=== PATIENT | male | born 1995 | race Hispanic/Latino ===

== ENCOUNTER 2025-07-20 06:54 | Inpatient (IN) | payer OTHER ==
[2025-07-20] MEDS ORDERED: MORPHINE 4 MG/ML SYR ONE (07:13)
[2025-07-20] MEDS ORDERED: ONDANSETRON 4 MG/2 ML VIAL ONE (07:13)
[2025-07-20] MEDS ORDERED: NA CHLORIDE 0.9% 1,000 ML ONE ×2 (07:13→08:33)
[2025-07-20] MEDS ORDERED: FAMOTIDINE 20 MG/2 ML VIAL IV ONE (07:13)
--- OUTSIDE RECORDS SUMMARY | 2025-07-20 07:19 | XMS REPORT | Continuity of Care Document ---
Author Name Unknown Address [address] [facility] [address] [place] [address] [facility] [place] Address [address] [facility] [place] [address] Care Team Providers Care Informatica Architect Name Role Phone Kat Mendoza Primary Care Physician [phone] GEORGES VILLANUEVA Attending Clinician Nicol Parker Attending Clinician Unavailabl e Doctor Unassigned, [place] Attending Clinician U ZACKARY Stevenson Attending Clinician Unavailable ZACKARY NARAYAN Attending Clinician Unavailable ELOISA LEDESMA Attending Clinician Unavailable Eloisa Keen Attending Clinician [phone] UNKNOWN, ATTENDING Attending Clinician Unavailab le Lab, Ang - Db Attending Clinician Unavailable Unknown, Attending Attending Clinician Unavailab le [facility] Attending Clinician Unavailable RUBY CASSIDY Attending Clinician Unavailable Leola Stephenson Attending Clinician [phone] LEOLA MILLER Attending Clinician Unavailable Maritza Baca DO Attending Clinician [phone] HAIR VALLE Attending Clinician Unavailable ANTONIO ENCINAS K.HProsper Attending Clinician Unavailricky Encinas MD, Antonio K.H. Attending Clinician + [phone] Kat Mendoza Attending Clinician [phone] KAT HUITRON Attending Clinician Unavailable GEORGES VILLANUEVA Admitting Clinician Jsoe rowe Payers Payer Name Policy Type Policy Number Effective Date Expirati on Date Source [facility] [place] - OUT OF STATE [id number] 2020 00:00:00 Problems Condition Name Condition Details Condition Category Status Onset Date Resolution Date Last Treatment Date Treating Clinician Comments Source Melena Melena Disease Active 02-27 00:00: 00 [facility] Elevated liver function tests Elevated liver function tests Disease Active 01-29 00:00: 00 [facility] BMI 45.0-49.9, adult BMI 45.0-49.9, adult Disease Active 3 00:00: 00 [facility] Encounter to establish care Encounter to establish care Disease Active 01-22 00:00: 00 [facility] Epigastric pain Epigastric pain Disease Active 01-22 00:00: 00 [facility] Nausea Nausea Disease Active 01-22 00:00: 00 [facility] Hematuria, unspecifie d type Hematuria, unspecifie d type Disease Active 01-22 00:00: 00 [facility] Hematemesi s with nausea Hematemesi s with nausea Disease Active 01-22 00:00: 00 [facility] Encounter to establish care Encounter to establish care Disease Active 01-22 00:00: 00 [facility] No known active problems No known active problems Disease [facility] Allergies, Adverse Reactions, Alerts Allergy Name Allergy Type Status Severity Reaction(s) Onset Date Inactive Date Treating Clinician Comments Source House Dust Propensi ty to adverse reaction s Active Other - See comments 08-24 00:00: 00 sneezing [facility] HOUSE DUST DRUG INGREDI Active Other-Cmnt 08-24 00:00: 00 [facility] NO KNOWN ALLERGIE S Drug Class Active [facility] Social History Social Habit Start Date Stop Date Quantity Comments Source [facility] to SARS-CoV-2 (event) Not sure [facility] Alcohol intake 2024-02-28 00:00:00 2024-02-28 00:00:00 Ex-drinker (finding) [facility] Alcoholic beverage intake 2024-02-28 00:00:00 2024-02-28 00:00:00 Ex-drinker (finding) [facility] History of Social function 2024-01-19 00:00:00 2024-01-19 00:00:00 [facility] Tobacco use and exposure 2021-02-25 00:00:00 2021-02-25 00:00:00 Smokeless tobacco non-user [facility] Sex assigned at 1995 00:00:00 1995 00:00:00 [facility] Smoking Status Start Date Stop Date Source Never smoked tobacco [facility] Medications Ordered Medication Name Filled Medication Name Start Date Stop Date Current Medication? Ordering Clinician Indication Dosage Frequency Signature (SIG) Comments Components Source omeprazole 20 mg capsule 02-27 00:00: 00 Yes [id number] 20mg Take 1 capsule by mouth in the morning and 1 capsule in the evening. [facility] pantoprazol e 40 mg EC tablet 01-22 00:00: 00 02-21 04:59 :00 No [id number] 40mg Take 1 tablet by mouth in the morning for 30 days. [facility] ondansetron 4 mg disintegrat ing tablet 01-20 00:00: 00 Yes [id number] 4mg Take 1 tablet by mouth every 8 (eight) hours as needed for Nausea and Vomiting (N/V). [facility] diazePAM (VALIUM) tablet 5 mg 08-24 13:00: 00 08-24 12:07 :00 No 5mg 5 mg, Oral, ONCE, 1 dose, On Mon08/24/21 at 0800, AHMET [facility] FENTanyl PF (SUBLIMAZE (PF)) injection 50 mcg 08-24 13:00: 00 08-24 12:00 :00 No 50ug 50 mcg, Intramuscu lar, ONCE, 1 dose, On Mon08/24/21 at 0800, Routine [facility] dexamethaso ne (DECADRON PHOSPHATE) injection 10 mg 08-24 13:00: 00 08-24 12:07 :00 No 10mg 10 mg, Oral, ONCE, 1 dose, On Mon08/24/21 at 0800, STAT [facility] cyclobenzap rine 10 mg tablet 08-24 00:00: 00 Yes [id number] 10mg Take 1 tablet by mouth 3 (three) times daily as needed for Muscle Spasms. [facility] No known medications No Un thomas ity [facility] No known medications No Un thomas ity [facility] No known medications [facility] No known [facility] No [facility] No known medications No [facility] No known medications No [facility] No known [facility] No [facility] No known medications No [facility] No known medications No [facility] No known medications No Un thomas [facility] Immunizations Ordered Immunization Name Filled Immunization Name Date Status Comments Source SARS-COV-2 COVID-19 MODERNA VACCINE 2021-03-26 00:00:00 Completed [facility] SARS-COV-2 COVID-19 MODERNA 12+ YRS VACCINE 2021-03-26 00:00:00 Completed [facility] SARS-COV-2 COVID-19 MODERNA VACCINE 2021-03-26 00:00:00 Completed [facility] SARS-COV-2 COVID-19 MODERNA VACCINE 2021-02-26 00:00:00 Completed [facility] SARS-COV-2 COVID-19 MODERNA 12+ YRS VACCINE 2021-02-26 00:00:00 Completed [facility] SARS-COV-2 COVID-19 MODERNA VACCINE 2021-02-26 00:00:00 Completed [facility] SARS-COV-2 COVID-19 MODERNA VACCINE 2021-02-26 00:00:00 Completed [facility] SARS-COV-2 COVID-19 MODERNA VACCINE 2021-02-26 00:00:00 Completed [facility] SARS-COV-2 COVID-19 MODERNA 12+ YRS VACCINE Unknown Completed [facility] SARS-COV-2 COVID-19 MODERNA 12+ YRS VACCINE Unknown Completed [facility] SARS-COV-2 COVID-19 MODERNA 12+ YRS VACCINE Unknown Completed [facility] SARS-COV-2 COVID-19 MODERNA 12+ YRS VACCINE Unknown Completed [facility] SARS-COV-2 COVID-19 MODERNA 12+ YRS VACCINE Unknown Completed [facility] SARS-COV-2 COVID-19 MODERNA 12+ YRS VACCINE Unknown Completed [facility] SARS-COV-2 COVID-19 MODERNA 12+ YRS VACCINE Unknown Completed [facility] SARS-COV-2 COVID-19 MODERNA 12+ YRS VACCINE Unknown Completed [facility] SARS-COV-2 COVID-19 MODERNA 12+ YRS VACCINE Unknown Completed [facility] SARS-COV-2 COVID-19 MODERNA 12+ YRS VACCINE Unknown Completed [facility] SARS-COV-2 COVID-19 MODERNA 12+ YRS VACCINE Unknown Completed [facility] SARS-COV-2 COVID-19 MODERNA 12+ YRS VACCINE Unknown Completed [facility] SARS-COV-2 COVID-19 MODERNA 12+ YRS VACCINE Unknown Completed [facility] SARS-COV-2 COVID-19 MODERNA 12+ YRS VACCINE Unknown Completed [facility] SARS-COV-2 COVID-19 MODERNA 12+ YRS VACCINE Unknown Completed [facility] SARS-COV-2 COVID-19 MODERNA 12+ YRS VACCINE Unknown Completed [facility] SARS-COV-2 COVID-19 MODERNA 12+ YRS VACCINE Unknown Completed [facility] SARS-COV-2 COVID-19 MODERNA 12+ YRS VACCINE Unknown Completed [facility] SARS-COV-2 COVID-19 MODERNA 12+ YRS VACCINE Unknown Completed [facility] SARS-COV-2 COVID-19 MODERNA 12+ YRS VACCINE Unknown Completed [facility] SARS-COV-2 COVID-19 MODERNA 12+ YRS VACCINE Unknown Completed [facility] SARS-COV-2 COVID-19 MODERNA 12+ YRS VACCINE Unknown Completed [facility] Vital Signs Vital Name Observation Time Observation Value Comments S ource Systolic blood pressure 2024-02-28 16:04:00 131 mm[Hg] [facility] Diastolic blood pressure 2024-02-28 16:04:00 84 mm[Hg] [facility] Heart rate 2024-02-28 16:04:00 89 /min Un[facility] Body temperature 2024-02-28 16:02:00 35.11 Evangelina [facility] Respiratory rate 2024-02-28 16:02:00 16 /min [facility] Body height 2024-02-28 16:02:00 182.9 cm [facility] Body weight 2024-02-28 16:02:00 159.621 kg [facility] BMI 2024-02-28 16:02:00 47.73 kg/m2 [facility] Oxygen saturation in Arterial blood by Pulse oximetry 2024-02-28 16:02:00 98 /min [facility] Systolic blood pressure 2024-01-30 20:21:00 124 mm[Hg] [facility] Diastolic blood pressure 2024-01-30 20:21:00 79 mm[Hg] [facility] Heart rate 2024-01-30 20:21:00 86 /min [facility] Body temperature 2024-01-30 20:21:00 36.67 Evangelina [facility] Respiratory rate 2024-01-30 20:21:00 18 /min [facility] Body height 2024-01-30 20:21:00 182.9 cm [facility] Body weight 2024-01-30 20:21:00 158.169 kg [facility] BMI 2024-01-30 20:21:00 47.29 kg/m2 [facility] Oxygen saturation in Arterial blood by Pulse oximetry 2024-01-30 20:21:00 98 /min [facility] Systolic blood pressure 2024-01-22 19:05:00 129 mm[Hg] [facility] Diastolic blood pressure 2024-01-22 19:05:00 83 mm[Hg] [facility] Heart rate 2024-01-22 19:05:00 81 /min Un[facility] Body temperature 2024-01-22 19:05:00 36.78 Evangelina [facility] Respiratory rate 2024-01-22 19:05:00 18 /min [facility] Body height 2024-01-22 19:05:00 182.9 cm [facility] Body weight 2024-01-22 19:05:00 160.483 kg [facility] BMI 2024-01-22 19:05:00 47.98 kg/m2 [facility] Oxygen saturation in Arterial blood by Pulse oximetry 2024-01-22 19:05:00 97 /min [facility] Systolic blood pressure 2024-01-19 21:34:00 138 mm[Hg] [facility] Diastolic blood pressure 2024-01-19 21:34:00 83 mm[Hg] [facility] Heart rate 2024-01-19 21:34:00 88 /min Un[facility] Body temperature 2024-01-19 21:34:00 36.11 Evangelina [facility] Respiratory rate 2024-01-19 21:34:00 18 /min [facility] Body height 2024-01-19 21:34:00 182.9 cm [facility] Body weight 2024-01-19 21:34:00 160.664 kg [facility] BMI 2024-01-19 21:34:00 48.04 kg/m2 [facility] Oxygen saturation in Arterial blood by Pulse oximetry 2024-01-19 21:34:00 96 /min [facility] Systolic blood pressure 2021-08-24 11:36:00 137 mm[Hg] [facility] Diastolic blood pressure 2021-08-24 11:36:00 74 mm[Hg] [facility] Heart rate 2021-08-24 11:36:00 58 /min Unive [facility] Body temperature 2021-08-24 11:36:00 36.94 Evangelina [facility] Respiratory rate 2021-08-24 11:36:00 19 /min [facility] Oxygen saturation in Arterial blood by Pulse oximetry 2021-08-24 11:36:00 99 /min [facility] Systolic blood pressure 2021-02-26 18:17:00 125 mm[Hg] [facility] Diastolic blood pressure 2021-02-26 18:17:00 85 mm[Hg] [facility] Heart rate 2021-02-26 18:17:00 73 /min Un[facility] Respiratory rate 2021-02-26 18:17:00 19 /min [facility] Body height 2021-02-26 18:17:00 185.4 cm [facility] Body weight 2021-02-26 18:17:00 138.529 kg [facility] BMI 2021-02-26 18:17:00 40.29 kg/m2 [facility] Oxygen saturation in Arterial blood by Pulse oximetry 2021-02-26 18:17:00 98 /min [facility] Systolic blood pressure 2021-02-25 14:39:00 134 mm[Hg] [facility] Diastolic blood pressure 2021-02-25 14:39:00 85 mm[Hg] [facility] Heart rate 2021-02-25 14:39:00 83 /min [facility] Body temperature 2021-02-25 14:39:00 36.94 Evangelina [facility] Body height 2021-02-25 14:39:00 185.4 cm [facility] Body weight 2021-02-25 14:39:00 141.613 kg [facility] BMI 2021-02-25 14:39:00 41.19 kg/m2 [facility] Oxygen saturation in Arterial blood by Pulse oximetry 2021-02-25 14:39:00 99 /min [facility] Procedures Procedure Date / Time Performed Performing Clinician Source EXTERNAL PROVIDER RECORDS 2024-02-07 05:01:00 Do ctor Unassigned, [place] [facility] XR CHEST 2 VW 2024-01-19 22:09:18 Leola Miller [facility] POCT URINALYSIS 2024-01-19 21:57:00 Leola [facility] NO SHOW OR MISSED APPOINTMENT POLICY ACKNOWLEDGEMENT 2024-01-19 21:23:23 Doctor Unassigned, [place] [facility] EXTERNAL PROVIDER - ADC CARDIOLOGY 2021-03-29 05:01:00 Doctor Unassigned, [place] [facility] EKG-12 LEAD 2021-02-26 18:23:39 Antonio Encinas [facility] ASSIGNMENT OF BENEFITS 2021-02-26 17:53:08 Docto r Unassigned, [place] [facility] CONSENT/REFUSAL FOR DIAGNOSIS AND TREATMENT 2021-02-26 17:52:55 Doctor Unassigned, [place] [facility] Encounters Start Date/Time End Date/Time Encounter Type Admission Type Attending [facility] Facility Care Department Encounter ID Source 2024-05-07 16:30:53 Outpatient GEORGES MARTINEZ [facility] [id number] [facility] 2024-03-06 16:32:40 Outpatient GEORGES MARTINEZ [facility] [id number] [facility] 2021-09-28 01:49:34 Emergency [facility] [id number] [facility] 2024-03-01 00:00:00 2025-01-11 02:26:49 Orders Only Nicol Hager Donesha N [facility] 1..840.114 350.1.13.10 4.2.7.2.686 [id number] [facility] 2024-05-20 00:00:00 2024-06-22 18:23:42 Patient Secure Msg Doctor Unassigned, [place] [facility] 1..840.114 350.1.13.10 4.2.7.2.686 [id number] [facility] 2024-05-07 15:30:00 2024-05-07 15:30:00 Outpatient ELOISA GONCALVES [facility] [id number] [facility] 2024-03-12 00:00:00 2024 18:06:11 Patient Secure Msg Doctor Unassigned, [place] [facility] 1.20.114 350.1.13.10 4.2.7.2.686 [id number] [facility] 2024-03-13 00:00:00 2024 18:05:27 Patient Secure Msg Doctor Unassigned, [place] [facility] 1.20.114 350.1.13.10 4.2.7.2.686 [id number] [facility] 2024-03-06 00:00:00 2024-04-06 18:03:45 Patient Secure Msg Doctor Unassigned, [place] [facility] 1.20.114 350.1.13.10 4.2.7.2.686 [id number] [facility] 2024-03-06 00:00:00 2024-03-06 00:00:00 Telephone Eloisa Ledesma [facility] 1.84.114 350.1.13.10 4.2.7.2.686 [id number] [facility] 2024-03-03 00:00:00 2024-03-03 00:00:00 Telephone Eloisa Ledesma [facility] 1.84.114 350.1.13.10 4.2.7.2.686 [id number] [facility] 2024-03-01 12:30:00 2024-03-01 12:59:25 Outpatient R UNKNOWN, ATTENDING [facility] [id number] [facility] 2024-03-01 12:30:00 2024-03-01 12:59:25 Test Fixture Designer Visit Lab, Ezekiel - Db Unknown, Attending [facility] 1.2840.114 350.1.13.10 4.2.7.2.686 [id number] [facility] 2024-02-29 00:00:00 2024-02-29 00:00:00 Telephone [facility] 1.2840.114 350.1.13.10 4.2.7.2.686 [id number] [facility] 2024-02-29 00:00:00 2024-02-29 00:00:00 Telephone [facility] 1.0.114 350.1.13.10 4.2.7.2.686 [id number] [facility] 2024-02-28 12:00:00 2024-02-28 12:15:00 Test Fixture Designer Visit [facility] 1..114 350.1.13.10 4.2.7.2.686 [id number] [facility] 2024-02-28 11:00:00 2024-02-28 11:30:[address] [facility] 1.2840.114 350.1.13.10 4.2.7.2.686 [id number] [facility] 2024-02-28 11:00:00 2024-02-28 11:00:00 Outpatient R ZACKARY NARAYAN LAUREN [facility] [id number] [facility] 2024-02-28 00:00:00 2024-02-28 00:00:00 Patient Secure Msg Doctor Unassigned, [place] [facility] 1.84.114 350.1.13.10 4.2.7.2.686 [id number] [facility] 2024-02-07 00:00:2024-02-07 00:00:00 Orders Only Doctor Unassigned, [place] [facility] 1.2840.114 350.1.13.10 4.2.7.2.686 [id number] [facility] 2024-01-30 14:30:00 2024-01-30 15:02:38 Outpatient R ELOISA LEDESMA [facility] [id number] [facility] 2024-01-30 14:30:00 2024-01-30 15:02:38 Office Visit Baltazar [facility] 1..840.114 350.1.13.10 4.2.7.2.686 [id number] [facility] 2024-01-26 00:00:00 2024-01-26 00:00:00 Telephone Brigitte[facility]onserrat [facility] 1.2.840.114 350.1.13.10 4.2.7.2.686 [id number] [facility] 2024-01-22 13:00:00 2024-01-22 13:30:07 Outpatient R ELOISA LEDESMA [facility] [id number] [facility] 2024-01-22 13:00:00 2024-01-22 13:30:07 Office Visit [facility] 1.2.840.114 350.1.13.10 4.2.7.2.686 [id number] [facility] 2024-01-22 00:00:00 2024-01-22 00:00:00 Letter (Out) [facility] 1.2.840.114 350.1.13.10 4.2.7.2.686 [id number] [facility] 2024-01-20 00:00:00 2024-01-20 00:00:00 Telephone Leola Miller [facility] 1.84.114 350.1.13.10 4.2.7.2.686 [id number] [facility] 2024-01-19 15:48:15 2024-01-19 23:59:00 Hospital Encounter Leola Miller [facility] 1.2.114 350.1.13.10 4.2.7.2.686 [id number] [facility] 2024-01-19 16:15:00 2024-01-19 16:30:00 Test Fixture Designer Visit Lab, [facility]iel [facility] 1.84.114 350.1.13.10 4.2.7.2.686 [id number] [facility] 2024-01-19 15:40:00 2024-01-19 15:57:29 Outpatient R SUSANNegro LEOLA [facility] [id number] [facility] 2024-01-19 15:40:00 2024-01-19 15:57:29 Urgent Care Leola Miller Unknown, Attending [facility] 1.84.114 350.1.13.10 4.2.7.2.686 [id number] [facility] 2024-01-19 00:00:00 2024-01-19 00:00:00 Orders Only Doctor Unassigned, [place] [facility] 1.84.114 350.1.13.10 4.2.7.2.686 [id number] [facility] 2023-07-12 09:30:00 2023-07-12 09:30:00 Outpatient R ELOISA LEDESMA [facility] [id number] [facility] 2021-08-24 06:46:00 2021-08-24 07:25:00 Emergency Maritza Baca [facility] 1.2.840.114 350.1.13.10 4.2.7.2.686 [id number] [facility] 2021-03-29 00:00:00 2021-03-29 00:00:00 Orders Only Doctor Unassigned, [place] [facility] 1.2.840.114 350.1.13.10 4.2.7.2.686 [id number] [facility] 2021-03-26 14:00:00 2021-03-26 14:00:00 Outpatient HAIR LUTHER [facility] [id number] [facility] 2021-03-02 13:00:00 2021-03-02 13:00:00 Outpatient ANTONIO LEVIN [facility] [id number] [facility] 2021-03-01 00:00:00 2021-03-01 00:00:00 Telephone Antonio Encinas [facility] 1.2.840.114 350.1.13.10 4.2.7.2.686 [id number] [facility] 2021-02-26 12:54:53 2021-02-26 13:59:10 Office Visit Antonio Encinas [facility] 1.2.840.114 350.1.13.10 4.2.7.2.686 [id number] [facility] 2021-02-26 13:40:00 2021-02-26 13:40:00 Outpatient HAIR LUTHER [facility] [id number] [facility] 2021-02-26 13:00:00 2021-02-26 13:00:00 Outpatient ANTONIO LEVIN [facility] [id number] [facility] 2021-02-26 00:00:00 2021-02-26 00:00:00 Orders Only Doctor Unassigned, [place] [facility] 1.840.114 350.1.13.10 4.2.7.2.686 [id number] [facility] 2021-02-25 09:29:02 2021-02-25 10:37:17 [facility] 1.840.114 350.1.13.10 4.2.7.2.686 [id number] [facility] 2021-02-25 09:30:00 2021-02-25 09:30:00 Outpatient R KAT HUITRON [facility] [id number] [facility] Results Test Description Test Time Test Comments Results Result Comments Source XR CHEST 2 VW 2023-12-29 3 22:33:31 EXAM: XR CHEST 2 VW COMPARISON: None available HISTORY: 28 years-old Male; coughing up blood TECHNIQUE: Frontal and lateral radiographs of the chest are obtained. FINDINGS: Poor penetration of the lateral x-ray. Lungs: The lung volumes are slightly low resulting in crowding of thebronchovascular markings. No focal opacities. No pleural effusion. Nopneumothorax is detected. Heart/Mediastinum: The cardiomediastinal silhouette is unremarkable.. Bones and soft tissues: No acute osseous findings are detected. [facility] Notes Date/Time Note Provider Source 2024-03-06 13:53:15 Contacted patient and informed him of provider lab results from GI. Pt stated he would like clarification of the abnormal ranged labs. [facility] 2024-03-06 11:41:52 Liliana Danielson is a 28 year old male Pt is requesting to speak with a nurse, pt does not want a message through [employer] he was to speak with someone through a phone call. Shey Zaidi [facility] 2024-03-04 08:39:09 Contacted patient to inform him that lab results have not yet been reviewed by provider so was no able to give any recommendation. I let patient know that once they have been reviewed he would receive a call from clinic Noa Rosas MA [facility] 2024-03-03 09:47:20 Liliana Danielson is a 28 year old male Pt reviewed results on [employer] from 03/01 and is concerned about the results. Would like a call back to discuss. [phone] (home) Mehreen Sanchez [facility] 2024-03-01 12:30:00 Images from the original note were not included. Venipuncture collection performed by clean technique on the right anticubitus. Total of 1 attempts were made. Slight pressure and a bandage/dressing were applied to the site(s). The patient experienced no complications. The following specimens were processed according to instructions and sent to [facility] laboratories per lab order on 03/01/2024 : LT BLUE SST 1 RED LAV 1 PPT DK GREEN (LiHep) DK GREEN (SodH) [place] DK BLUE (K2) DK BLUE (S) ACD Blood Culture NIPT/NTD [facility] 2024-02-29 13:01:40 I called patient to let him know that we still needed CBC. Lab stated order was put in after patient left and Hep Function was ordered by PCP and GI provider. That one was drawn. Patient voiced understanding and will get lab done in [facility] lab. Bj Delgado RN [facility] 2024-02-29 08:57:44 Pt requesting a callback to discuss lab results, pls advise. Ginger Garcia [facility] 2024-02-28 12:00:00 Images from the original note were not included. Venipuncture collection performed by clean technique on the right anticubitus. Total of 1 attempts were made. Slight pressure and a bandage/dressing were applied to the site(s). The patient experienced no complications. The following specimens were processed according to instructions and sent to [facility] laboratories per lab order on 02/28/2024 : LT BLUE SST 3 RED LAV PPT DK GREEN (LiHep) DK GREEN (SodH) [place] DK BLUE (K2) DK BLUE (S) ACD Blood Culture NIPT/NTD [facility] 2024-01-31 10:57:36 Patient informed of results per provider during office visit 01/30/24 [facility] 2024-01-26 15:43:52 Attempted to contact patient. No answer. Left message to call back. Rosalva Wallis LVN 01/26/2024 3:43 PM [facility] 2024-01-26 13:03:34 Copied from [facility] #[id number]. Topic: Clinical - Results >> Jan 26, 2024 1:01 PM Patient Food Products Sales Representative wrote: Liliana Danielson is a 28 year old male Patient would like to receive a call to discuss MRI results. [employer] Daiana Gillis [facility] 2024-01-20 10:15:07 Please advise on lab results PT/INR, Lipase, CMP, CBC, Y Muñoz RN [facility] 2024-01-20 10:10:38 Liliana Danielson is a 28 year old male Pt is requesting a call regarding lab results. Thanks Y Luis [facility] 2024-01-19 16:15:00 Images from the original note were not included. Venipuncture collection performed by clean technique on the left anticubitus. Total of 1 attempts were made. Slight pressure and a bandage/dressing were applied to the site(s). The patient experienced no complications. The following specimens were processed according to instructions and sent to [facility] laboratories per lab order on 01/19/2024: LT BLUE 1 SST 1 RED LAV 1 PPT DK GREEN (LiHep) DK GREEN (SodH) [place] DK BLUE (K2) DK BLUE (S) ACD Blood Culture NIPT/NTD [facility]
[2025-07-20 07:20] LABS: Absolute Lymphocytes (CBC) 1.1 K/uL (0.7-4.9); Hematocrit 39.4 % (39.6-49.0); Hemoglobin 13.6 g/dL (13.6-17.9); MCH 28.1 pg (27.0-35.0); MCHC 34.4 g/dL (32.0-36.0); MCV 81.8 fL (80-100); MPV 8.5 fL (7.6-11.3); Nucleated RBC Absolute Count 0.0 (0-0); Nucleated Red Blood Cells % 0.0 % (0-0); RBC Red Blood Cell Count 4.82 M/uL (4.33-5.43); White Blood Count 9.10 thou/uL (4.3-10.9)
[2025-07-20 07:41] LABS: ALT/SGPT 61.0 U/L (16-61); AST/SGOT 64.0 U/L (15-37); Albumin 3.6 g/dL (3.4-5.0); Albumin/Globulin Ratio 1.1 (1.1-1.8); Alkaline Phosphatase 90.0 U/L (45-117); Anion Gap 6.7 mEq/L (5.0-15.0); BUN Blood Urea Nitrogen 9.0 mg/dL (7-18); Globulin 3.3 g/dL (2.3-3.5); Glucose Level 86.0 mg/dL (74-106); Lipase 42.0 U/L (13-75); Potassium 3.7 mEq/L (3.5-5.1)
--- NOTE | 2025-07-20 08:24 | RAD REPORT ---
EXAMINATION: CT ABDOMEN AND PELVIS WITH CONTRAST CLINICAL INDICATION: Abdominal pain TECHNIQUE: CT abdomen and pelvis was performed, after the administration of 100 cc Isovue-300.. Sagit liliana and coronal reconstructions were obtained. One or more of the following dose reduction techniques were used: Automated exposure control, adjustment of the mA and kV according to patient si ze, and iterative reconstruction. Unless otherwise specified, incidental findings do not require dedicated imaging follow-up. [id number]. Oral contrast was not given which limits evaluation of bowel and appendix. COMPARISON: .None FINDINGS: Mild gallbladder wall thickening. Biliary tree normal caliber. Liver, spleen, pancreas, adrenals and kidneys appear unremarkable No evidence of diverticulitis. Normal appendix. Small umbilical hernia. Mild bladder distention. : IMPRESSION: Mild gallbladder wall thickening may indicate cholecystitis
--- NOTE | 2025-07-20 08:25 | RAD REPORT ---
EXAM: Abdominal exam Limited ultrasound CLINICAL HISTORY: Abdominal pain COMPARISON: None FINDINGS: Multiple echogenic structures within the gallbladder. At least one demonstrates faint shadowing. Mild gallbladder wall thickening. Biliary tree normal caliber IMPRESSION: Multiple echogenic structures within the gallbladder probably a combination of sludge and gallstones. The evaluation is suboptimal. Mild gallbladder wall thickening may indicate cholecystitis
[2025-07-20] MEDS ORDERED: CEFTRIAXONE 1000 MG/VIAL ONE (08:33)
[2025-07-20] MEDS ORDERED: METRONIDAZOLE 500mg IVPB 500 MG/100 ML BAG IV ONE (08:34)
[2025-07-20] MEDS ORDERED: NA CHLORIDE 0.9% 0 ML ONE (08:34)
--- NOTE | 2025-07-20 08:45 | EDPHYS ---
Physician Documentation [facility] Name: Jesus Danielson Age: 30 yrs Sex: Male : 1995 Arrival Date: 07/20/2025 Time: 06:54 Bed 7 Private MD: ED Physician Ben Maloney HPI: 07/20 07:02 This 30 yrs old Male presents to ER via Unassigned with complaints of vish abdominal pain, n, v. 07:02 The patient presents with abdominal pain in the epigastric area, in the upper abdomen, vish abdominal distention in the upper abdomen, in the lower abdomen. Onset: The symptoms/episode began/occurred 1 day(s) ago. The patient presents to the emergency department with nausea, vomiting, abdominal pain, of the right upper quadrant and left upper quadrant. Onset: The symptoms/episode began/occurred 1 day(s) ago. Possible causes: bad food exposure. The symptoms are aggravated by nothing. The symptoms are alleviated by nothing. Associated signs and symptoms: Pertinent positives: anorexia, nausea, vomiting. Modifying factors: The symptoms are alleviated by nothing, the symptoms are aggravated by food. 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 - Infectious Disease History:: Denies. - Family history:: not pertinent. - Social history:: Smoking status: Patient denies any tobacco usage or history of. ROS: 07:02 Constitutional: Negative for fever, chills, and weight loss, Eyes: Negative for injury, vish pain, redness, and discharge, ENT: Negative for injury, pain, and discharge, Neck: Negative for injury, pain, and swelling, Cardiovascular: Negative for chest pain, palpitations, and edema, Respiratory: Negative for shortness of breath, cough, wheezing, and pleuritic chest pain, Back: Negative for injury and pain, : Negative for injury, bleeding, discharge, and swelling, MS/Extremity: Negative for injury and deformity, Skin: Negative for injury, rash, and discoloration, Neuro: Negative for headache, weakness, numbness, tingling, and seizure, Psych: Negative for depression, anxiety, suicide ideation, homicidal ideation, and hallucinations, Allergy/Immunology: Negative for hives, rash, and allergies, Endocrine: Negative for neck swelling, polydipsia, polyuria, polyphagia, and marked weight changes, Hematologic/Lymphatic: Negative for swollen nodes, abnormal bleeding, and unusual bruising, 07:02 Abdomen/GI: Positive for abdominal pain, nausea and vomiting, abdominal cramps, of the right upper quadrant and left upper quadrant, Exam: 07:02 Constitutional: This is a well developed, well nourished patient who is awake, alert, vish and in no acute distress. Head/Face: Normocephalic, atraumatic. Eyes: Pupils equal round and reactive to light, extra-ocular motions intact. Lids and lashes normal. Conjunctiva and sclera are non-icteric and not injected. Cornea within normal limits. Periorbital areas with no swelling, redness, or edema. ENT: Nares patent. No nasal discharge, no septal abnormalities noted. Tympanic membranes are normal and external auditory canals are clear. Oropharynx with no redness, swelling, or masses, exudates, or evidence of obstruction, uvula midline. Mucous membranes moist. Neck: Trachea midline, no thyromegaly or masses palpated, and no cervical lymphadenopathy. Supple, full range of motion without nuchal rigidity, or vertebral point tenderness. No Meningismus. Chest/axilla: Normal chest wall appearance and motion. Nontender with no deformity. No lesions are appreciated. Cardiovascular: Regular rate and rhythm with a normal S1 and S2. No gallops, murmurs, or rubs. Normal PMI, no JVD. No pulse deficits. Respiratory: Lungs have equal breath sounds bilaterally, clear to auscultation and percussion. No rales, rhonchi or wheezes noted. No increased work of breathing, no retractions or nasal flaring. Back: No spinal tenderness. No costovertebral tenderness. Full range of motion. Male : Normal genitalia with no discharge or lesions. Skin: Warm, dry with normal turgor. Normal color with no rashes, no lesions, and no evidence of cellulitis. MS/ Extremity: Pulses equal, no cyanosis. Neurovascular intact. Full, normal range of motion., bilateral aka Neuro: Awake and alert, GCS 15, oriented to person, place, time, and situation. Cranial nerves II-XII grossly intact. Motor strength 5/5 in all extremities. Sensory grossly intact. Cerebellar exam normal. Normal gait. Psych: Awake, alert, with orientation to person, place and time. Behavior, mood, and affect are within normal limits. 07:02 ECG was reviewed by the Attending Physician. 07:02 Abdomen/GI: Inspection: distension, that is mild, obese Bowel sounds: normal, in all quadrants, Palpation: mild abdominal tenderness, moderate abdominal tenderness, in the right upper quadrant and left upper quadrant, Liver: no appreciated palpable abnormalities, Hernia: not appreciated, 07:02 Musculoskeletal/extremity: ROM: no acute changes, intact in all extremities, full active range of motion, full passive range of motion, Circulation is intact in all extremities. Pulses: Perfusion: the patient is Sensation intact. Compartment Syndrome exam of affected extremity: is normal. no pain, no numbness, no tingling, no sensation deficit, no palor, no weak pulses, DVT Exam: No signs of deep vein thrombosis. no pain, no swelling, no tenderness, negative Homans' sign noted on exam, no appreciated bluish discoloration, no erythema, no increased warmth, 07:02 Neuro: Orientation: is normal, appropriate for stated age, no acute changes, Mentation: is normal, appropriate for stated age, no acute changes, Vital Signs: 07:00 BP 141 / 78; Pulse 100; Resp 18; Temp 98.7; Pulse Ox 100% ; Weight 126.1 kg; Height 6 nh2 ft. 0 in. ; Pain 5/10; 08:15 BP 100 / 55 RA; Pulse 79; Resp 18; Pulse Ox 100% on R/A; Pain 3/10; nh2 09:05 BP 135 / 71; Pulse 78; Resp 18; Pulse Ox 100% on R/A; Height 6 ft. 0 in. ; Pain 3/10; nh2 10:00 BP 125 / 70; Pulse 61; Resp 16 S; Temp 98(O); Pulse Ox 100% on R/A; aa5 07:00 Body Mass Index 37.70 (126.10 kg, 182.88 cm) nh2 07:00 Pain Scale: Adult nh2 08:15 Pain Scale: Adult nh2 09:05 Pain Scale: Adult nh2 MDM: 06:56 Medical Screening Exam initiated vish 07:30 Transition of care: Care assumed from Shai Franky MD. rn 07:47 Differential diagnosis: Nonspecific abd pain, gastritis, cholecystitis, pancreatitis, rn appendicitis, viral gastroenteritis, gastroenteritis, appendicitis, bowel obstruction, cholecystitis, Cholelithiasis, diverticulitis, gastritis, gastroesophageal reflux disease, non-specific abd pain, pancreatitis, Peptic Ulcer Disease, Perf. Duodenal Ulcer, Perf. Gastric Ulcer, Ureterolithiasis. 08:43 Data reviewed: vital signs, nurses notes, lab test result(s), radiologic studies, CT rn scan, ultrasound, and as a result, I will admit patient. Consideration of Admission/Observation Patient was admitted/placed on observation. Escalation of care including admission/observation considered. Management of patient was discussed with the following: Wire Wrapper Machine Operator: Discussed case with Dr. Albert, will come evaluate patient.. Independent interpretation of the following test(s) in the Emergency Department CT Scan: My interpretation is CT abdomen images shows a thickened gallbladder wall per my interpretation. Counseling: I had a detailed discussion with the patient and/or guardian regarding the historical points, exam findings, and any diagnostic results supporting the discharge/admit diagnosis, lab results, radiology results, the need for further work-up and treatment in the hospital. Response to treatment: the patient's symptoms have mildly improved after treatment, and as a result, I will admit patient. 07/20 06:57 Order name: CBC with Diff; Complete Time: 07:46 [facility] 07/20 06:57 Order name: CMP; Complete Time: 07:46 [facility] 07/20 06:57 Order name: Lipase; Complete Time: 07:46 [facility] 07/20 06:57 Order name: UA Rfx Jayden Cult if indicated [facility] 07/20 09:01 Order name: Liver (Hepatic) Function [facility] 07/20 09:03 Order name: CBC with Automated Diff [facility] 07/20 09:03 Order name: CBC with Automated Diff [facility] 07/20 09:03 Order name: Comprehensive Metabolic Panel [facility] 07/20 09:03 Order name: Comprehensive Metabolic Panel [facility] 07/20 09:03 Order name: Protime (+INR) [facility] 07/20 09:03 Order name: Protime (+INR) [facility] 07/20 09:03 Order name: PTT, Activated Partial Thromb [facility] 07/20 09:03 Order name: PTT, Activated Partial Thromb [facility] 07/20 06:57 Order name: Abdomen Limited US; Complete Time: 08:26 [facility] 07/20 06:57 Order name: CT Abd/Pelvis - IV Contrast Only; Complete Time: 08:26 [facility] 07/20 09:03 Order name: CONS Physician Consult [facility] 07/20 06:57 Order name: IV Saline Lock; Complete Time: 07:10 [facility] 07/20 06:57 Order name: Labs collected and sent; Complete Time: 07:10 vish 07/20 08:27 Order name: NPO; Complete Time: 08:33 rn 07/20 08:50 Order name: EKG - Nurse/Tech; Complete Time: 09:01 nh2 Administered Medications: 07:30 Drug: Famotidine IVP 20 mg IVP once; dilute with 10 mL 0.9% NaCl; give over 2 minutes nh2 Route: IVP; Site: left antecubital; 08:00 Follow up: Response: No adverse reaction nh2 07:30 Drug: Ondansetron IVP 4 mg IVP once; over 2 minutes Route: IVP; Site: left antecubital; nh2 08:00 Follow up: Response: No adverse reaction; Nausea is decreased nh2 07:30 Drug: morphine IVP or IV 4 mg IVP once over 4 mins Route: IVP; Infused Over: 4 mins; nh2 Site: left antecubital; 08:00 Follow up: Response: No adverse reaction; Pain is decreased; RASS: Alert and Calm (0) nh2 07:30 Drug: NS 0.9% IV 1000 ml IV at 1 bolus Per protocol; to be given as a bolus over 60 nh2 minutes Route: IV; Rate: 1 bolus; Site: left antecubital; 08:30 Follow up: Response: No adverse reaction; IV Status: Completed infusion nh2 08:50 Drug: Rocephin IV 1 grams IV at calculated rate once; Given slow IV push per pharmacy nh2 instructions Route: IV; Rate: calculated rate; Site: left antecubital; 09:15 Follow up: Response: No adverse reaction; IV Status: Completed infusion nh2 08:50 Drug: metroNIDAZOLE IVPB 500 mg 100 ml IVPB at 200 ml/hr once over 30 mins Volume: 100 nh2 ml; Route: IVPB; Rate: 200 ml/hr; Infused Over: 30 mins; Site: left antecubital; 09:15 Follow up: Response: No adverse reaction nh2 09:15 Follow up: IV Status: Completed infusion nh2 08:50 Drug: NS 0.9% IV 1000 ml IV at 1000 ml once; to be given as a bolus over 60 minutes nh2 Route: IV; Rate: 1000 ml; Site: left antecubital; 09:50 Follow up: Response: No adverse reaction; IV Status: Completed infusion; IV Intake: nh2 1000ml Disposition Summary: 07/20/25 08:45 Hospitalization Ordered Notes: Hospitalization Status: Inpatient Admission rn Provider: Jayro Harrington rn [facility] Condition: Stable rn Problem: new rn Symptoms: have improved rn Bed/Room Type: Standard rn Room Assignment: 202(07/20/25 09:04) eb Diagnosis - Acute cholecystitis rn - Other cholelithiasis without obstruction rn Forms: - Medication Reconciliation Form rn - SBAR form rn - Leadership Thank You Letter rn Signatures: Dispatcher [employer] EDPA Shai Wilkins MD MD cha Nieto, Roman, MD MD rn Botello, Cj Andres Jr, BARRIE RN nh2 Corrections: (The following items were deleted from the chart) 06:58 06:58 CBC+H.LAB.BRZ ordered. [facility] EDMS 06:58 06:58 COMPREHENSIVE METABOLIC PANEL+C.LAB.BRZ ordered. [facility] EDMS 06:58 06:58 LIPASE+C.LAB.BRZ ordered. [facility] EDMS 06:58 06:58 UA Rfx Jayden Cult if indicated+U.LAB.BRZ ordered. [facility] EDPA 07:30 07:05 Data reviewed: vital signs, nurses notes, lab test result(s), EKG, radiologic rn studies, CT scan, ultrasound, [facility] 07:05 Consideration of Admission/Observation Escalation of care including welder journeyman/observation considered. [facility] :30 07:05 Differential diagnosis: appendicitis, bowel obstruction, cholecystitis, rn Cholelithiasis, diverticulitis, gastritis, GI Bleed, non-specific abd pain, pancreatitis, [facility] : 07:05 I considered the following discharge prescriptions or medication management in rn the emergency department Medications were administered in the Emergency Department. See MAR [facility] 30 07:05 Independent interpretation of the following test(s) in the Emergency Department rn EKG: See my EKG interpretation above [facility] :30 07:05 Historians other than the Patient: EMS: ems well informed. vish rn : Test considered but Not performed: MRI: no mrcp. 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 [facility] : Counseling: I had a detailed discussion with the patient and/or guardian rn regarding the historical points, exam findings, and any diagnostic results supporting the discharge/admit diagnosis, lab results, radiology results, [facility] 08:45 rn eb
--- NOTE | 2025-07-20 08:45 | ER ---
Nurse's Notes [facility] Name: Jesus Danielson Age: 30 yrs Sex: Male : 1995 Arrival Date: 07/20/2025 Time: 06:54 Bed 7 Private MD: Diagnosis: Acute cholecystitis;Other cholelithiasis without obstruction Presentation: 07/20 07:00 Chief complaint: Patient states: c/o upper abdominal pain since 0300, N/V with 6-7 nh2 episodes of emesis. 07:00 Coronavirus screen: nausea, vomiting. Ebola Screen: No symptoms or risks identified at nh2 this time. Initial Sepsis Screen: Does the patient meet any 2 criteria? HR > 90 bpm. Does the patient have a suspected source of infection? No. Patient's initial sepsis screen is negative. Risk Assessment: Do you want to hurt yourself or someone else? Patient reports no desire to harm self or others. Onset of symptoms was July 20, 2025. 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 - Infectious Disease History:: Denies. - Family history:: not pertinent. - Social history:: Smoking status: Patient denies any tobacco usage or history of. Screenin:00 [facility] ED Fall Risk Assessment (Adult) History of falling in the last 3 months, nh2 including since admission No falls in past 3 months (0 pts) Confusion or Disorientation No (0 pts) Intoxicated or Sedated No (0 pts) Impaired Gait No (0 pts) Mobility Assist Device Used No (0 pt) Altered Elimination No (0 pt) Score/Fall Risk Level 0 - 2 = Low Risk Oriented to surroundings, Maintained a safe environment, Educated pt \T\ family on fall prevention, incl call for assistance when getting out of bed. 07:00 Abuse screen: Denies threats or abuse. Denies injuries from another. Nutritional nh2 screening: No deficits noted. Tuberculosis screening: No symptoms or risk factors identified. Assessment: 07:00 General: Appears comfortable, Behavior is calm, cooperative. Pain: Complains of pain in nh2 right upper quadrant and left upper quadrant Pain does not radiate. Pain currently is 5 out of 10 on a pain scale. at worst was 8 out of 10 on a pain scale. Quality of pain is described as crampy, Pain began 299 Is intermittent. Neuro: Level of Consciousness is awake, alert, obeys commands, Oriented to person, place, time, situation, Appropriate for age. Cardiovascular: Patient's skin is warm and dry. Respiratory: Airway is patent Respiratory effort is even, unlabored, Respiratory pattern is regular, symmetrical. GI: Abdomen is round non-distended, Last BM was July 19, 2025. Bowel sounds present X 4 quads. Abd is soft X 4 quads Abdomen is tender to palpation in right upper quadrant Reports nausea, vomiting, since 299. : No signs and/or symptoms were reported regarding the genitourinary system. EENT: No signs and/or symptoms were reported regarding the EENT system. Derm: Skin is pink, warm \T\ dry. Musculoskeletal: Range of motion: intact in all extremities. 08:00 Reassessment: Patient is alert, oriented x 3, equal unlabored respirations, skin nh2 warm/dry/pink. reports improvement of pain with 3/10 upper abdominal pain Patient states symptoms have improved. 08:50 Reassessment: Dr. Roosevelt MD at bedside talking to patient. nh2 Vital Signs: 07:00 BP 141 / 78; Pulse 100; Resp 18; Temp 98.7; Pulse Ox 100% ; Weight 126.1 kg; Height 6 nh2 ft. 0 in. ; Pain 5/10; 08:15 BP 100 / 55 RA; Pulse 79; Resp 18; Pulse Ox 100% on R/A; Pain 3/10; nh2 09:05 BP 135 / 71; Pulse 78; Resp 18; Pulse Ox 100% on R/A; Height 6 ft. 0 in. ; Pain 3/10; nh2 10:00 BP 125 / 70; Pulse 61; Resp 16 S; Temp 98(O); Pulse Ox 100% on R/A; aa5 07:00 Body Mass Index 37.70 (126.10 kg, 182.88 cm) nh2 07:00 Pain Scale: Adult nh2 08:15 Pain Scale: Adult nh2 09:05 Pain Scale: Adult nh2 ED Course: 06:56 Patient arrived in ED. vc1 06:56 Shai Wilkins MD is Attending Physician. vish 07:00 Arm band placed on. nh2 07:00 Patient has correct armband on for positive identification. Bed in low position. Call nh2 light in reach. Side rails up X 1. Provided Education on: using call light for assistance. 07:00 Maintain EMS IV. Dressing intact. Good blood return noted. Site clean \T\ dry. Gauge \T\ nh 2 site: 20G LAC. Flushed with 10 mL NS. 07:12 Cj Tucker Jr, RN is Primary Nurse. nh2 07:22 Attending Physician role handed off by Shai Wilkins MD rn 07:22 Ben Maloney MD is Attending Physician. rn 07:23 Abdomen Limited US In Process Unspecified. EDMS 07:54 Triage completed. nh2 08:02 CT Abd/Pelvis - IV Contrast Only In Process Unspecified. EDMS 08:45 Jayro Harrington MD is Hospitalizing Provider. rn 09:00 No provider procedures requiring assistance completed. nh2 09:01 EKG done, by ED staff, reviewed by Ben Maloney MD. nh2 10:10 Patient admitted, IV remains in place. nh2 Administered Medications: 07:30 Drug: Famotidine IVP 20 mg IVP once; dilute with 10 mL 0.9% NaCl; give over 2 minutes nh2 Route: IVP; Site: left antecubital; 08:00 Follow up: Response: No adverse reaction nh2 07:30 Drug: Ondansetron IVP 4 mg IVP once; over 2 minutes Route: IVP; Site: left antecubital; nh2 08:00 Follow up: Response: No adverse reaction; Nausea is decreased nh2 07:30 Drug: morphine IVP or IV 4 mg IVP once over 4 mins Route: IVP; Infused Over: 4 mins; nh2 Site: left antecubital; 08:00 Follow up: Response: No adverse reaction; Pain is decreased; RASS: Alert and Calm (0) nh2 07:30 Drug: NS 0.9% IV 1000 ml IV at 1 bolus Per protocol; to be given as a bolus over 60 nh2 minutes Route: IV; Rate: 1 bolus; Site: left antecubital; 08:30 Follow up: Response: No adverse reaction; IV Status: Completed infusion nh2 08:50 Drug: Rocephin IV 1 grams IV at calculated rate once; Given slow IV push per pharmacy nh2 instructions Route: IV; Rate: calculated rate; Site: left antecubital; 09:15 Follow up: Response: No adverse reaction; IV Status: Completed infusion nh2 08:50 Drug: metroNIDAZOLE IVPB 500 mg 100 ml IVPB at 200 ml/hr once over 30 mins Volume: 100 nh2 ml; Route: IVPB; Rate: 200 ml/hr; Infused Over: 30 mins; Site: left antecubital; 09:15 Follow up: Response: No adverse reaction nh2 09:15 Follow up: IV Status: Completed infusion nh2 08:50 Drug: NS 0.9% IV 1000 ml IV at 1000 ml once; to be given as a bolus over 60 minutes nh2 Route: IV; Rate: 1000 ml; Site: left antecubital; 09:50 Follow up: Response: No adverse reaction; IV Status: Completed infusion; IV Intake: nh2 1000ml Medication: 08:07 VIS not applicable for this client. nh2 Intake: 09:50 IV: 1000ml; Total: 1000ml. nh2 Outcome: 08:45 Decision to Hospitalize by Provider. rn 10:10 Admitted to Med/surg accompanied by nurse, via wheelchair, with chart, nh2 10:10 Condition: stable 10:10 Instructed on the need for admit, Demonstrated understanding of instructions, 10:14 Patient left the ED. aa5 Signatures: Dispatcher [employer] EDShai Tan MD MD cha Nieto, Roman, MD MD rn Calderon, Audri, RN RN aa5 Layne Perez RN RN vc1 Cj Tucker Jr, RN RN nh2 Corrections: (The following items were deleted from the chart) 08:08 07:00 Respiratory: Airway is patent Respiratory effort is even, unlabored, Respiratory nh2 pattern is regular, symmetrical, nh2 19:50 09:01 EKG done, by ED staff, reviewed by Cj Tucker Jr, RN nh2 nh2
[2025-07-20] MEDS ORDERED: ONDANSETRON 4 MG/2 ML VIAL IV PRN (08:59)
[2025-07-20] MEDS ORDERED: ACETAMINOPHEN 500 MG TAB PO PRN (08:59)
[2025-07-20] MEDS ORDERED: MORPHINE 2 MG/ML SYR IV PRN (08:59)
[2025-07-20] MEDS: NA CHLORIDE 0.9% 1,000 ML IV SCH (09:00)
[2025-07-20 10:39] VITALS: BMI 37.7
[2025-07-20] MEDS: PIPER TAZO 3.375 GM in NA CHLORIDE 0.9% 100 ML IV SCH (10:46)
--- NOTE | 2025-07-20 11:23 | CON ---
Date of Consultation: 07/20/2025 Reason For Consultation: Abdominal pain. History Of Present Illness: The patient is a 30-year-old gentleman who had acute onset of upper abdo betsy pain going to the right upper quadrant associated with nausea and vomiting. The patient denies any diarrhea, constipation, blood per rectum, dysuria, or hematuria. The patient denies any sore th roat, runny nose, cough, headaches, or dizziness. No chest pain. No fevers or chills. The patient had a [employer] sandwich last night. Review of Systems: Otherwise, unremarkable. Past Medical History: Significant for a hole in the heart, according to the patient, probably an ASD or VSD. 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 Allergies: NO ALLERGIES. Social History: The patient does not smoke. Drinks occasionally. Family History: Significant for some heart disease. Physical Examination: Vital Signs: Stable. The patient is afebrile. General: The patient is awake and alert x3. Head and Neck: Cranial nerves 2 through 12 are grossly within normal limits. No neck masses. No JV D. Throat clear. Neck is supple. No evidence of icterus. Chest: Clear. Heart: S1, S2. Abdomen: Soft, nondistended. Positive bowel sounds. Positive right upper quadrant tenderness with minimal rebound. No rigidity or guarding. Extremities: Adequately perfused. Nontender. Neuro: Nonfocal. Laboratory Data: Shows a white count of 9.1, with a left shift. Chemistry reviewed. Total bilirubi n is slightly elevated at 1.9 and AST is 64. Lipase is 42. CT of the abdomen and pelvis and ultraso und reviewed. It shows mild gallbladder wall thickening, may indicate cholecystitis, multiple echoge daniel structures within the gallbladder, probably a combination of sludge and stones. CT of the abdome n and pelvis shows mild gallbladder wall thickening, may indicate cholecystitis. No other findings. Assessment: Acute cholecystitis and cholelithiasis with the history of heart surgery. Recommendations: Admit, hydrate, and antibiotics. Clear liquids today. NPO after tomorrow. Based on the EKG and the hospitalist evaluation, the patient may need a cardiac clearance and following [facility], we will proceed with laparoscopic cholecystectomy, possible open. The patient understands risks, benefits, and alternatives, and agrees to procedure. Plan of care discussed in detail with the Hosp italist team. /MODL Voice ID: [id number] Report ID: [id number]
[2025-07-20 13:53] LABS: ALT/SGPT 203.0 U/L (16-61); AST/SGOT 267.0 U/L (15-37); Albumin 3.7 g/dL (3.4-5.0); Albumin/Globulin Ratio 1.0 (1.1-1.8); Alkaline Phosphatase 132.0 U/L (45-117); Bilirubin Indirect, Calculated 1.0 mg/dL (0.2-0.8); Globulin 3.6 g/dL (2.3-3.5); NT PRO-BNP 54.0 pg/mL (<125); Troponin High Sensitivity 7.2 pg/mL (<58.9)
--- NOTE | 2025-07-20 15:50 | P.HP ---
Certification for Inpatient Patient admitted to: Observation With expected LOS: <2 Midnights Patient will require the following post-hospital care: None Practitioner: I am a practitioner with admitting privileges, knowledge of patient current condition, hospital course, and medical plan of care. 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 He works the overnight shift and developed the abdominal pain around 3 AM, his last meal was around 1 AM, he denies similar episodes in the past. Patient was evaluated in the emergency department his labs were significant for a normal white blood cell count a T. bili of 1.[address] and abdominal ultrasound are concerning for cholecystitis. Patient be admitted for further management. - Past Medical/Surgical History -: heart sx/hole in heart as a baby -: heart surgery Psychosocial/ Personal History: Lives at home with family - Social History Smoking Status: Never smoker Alcohol use: Yes CD- Drugs: No Caffeine use: Yes Place of Residence: Home <Antonino Ramos - Last Filed: 07/20/25 15:48> Date of Service: 07/20/25 <Jayro Harrington - Last Filed: 07/21/25 07:33> Allergies No Known Allergies Allergy (Verified 07/21/25 07:28) Home Medications: Omeprazole [Prilosec] 40 mg PO AC 07/20/25 Semaglutide 1 mg SQ ONCE 07/20/25 Review of Systems 10-point ROS is otherwise unremarkable Gastrointestinal: Nausea, Abdominal Pain <Antonino Ramos - Last Filed: 07/20/25 15:48> Physical Examination - Vital Signs Temperature: 97.7 F Blood Pressure: 134/75 Pulse: 67 Respirations: 18 Pulse Ox (%): 100 - Physical Exam General: Alert, In no apparent distress, Oriented x3 HEENT: Atraumatic, PERRLA, EOMI Neck: Supple, 2+ carotid pulse no bruit, No LAD Respiratory: Clear to auscultation bilaterally, Normal air movement Cardiovascular: Regular rate/rhythm, Normal S1 S2 Gastrointestinal: Normal bowel sounds, Tenderness (Mild epigastric tenderness) Musculoskeletal: No tenderness Integumentary: No rashes Neurological: Normal gait, Normal speech, Normal strength at 5/5 x4 extr, Normal affect - Studies Laboratory Data (last 24 hrs) 07/20/25 07/20/25 07:03 07:03 WBC 9.10 Hgb 13.6 Hct 39.4 L Plt Count 238 Sodium 140 Potassium 3.7 BUN 9 Creatinine 0.89 Glucose 86 Total Bilirubin 1.9 H AST 64 H ALT 61 Alkaline Phosphatase 90 Lipase 42 <Antonino Ramos - Last Filed: 07/20/25 15:48> - Studies Laboratory Data (last 24 hrs) 07/20/25 07:03 Sodium 140 Potassium 3.7 BUN 9 Creatinine 0.89 Glucose 86 Total Bilirubin 1.9 H AST 64 H ALT 61 Alkaline Phosphatase 90 Lipase 42 <Jayro Harrington - Last Filed: 07/21/25 07:33> Assessment and Plan - Plan Assessment: Acute cholecystitis History of ASD repair Plan: Acute cholecystitis Clear liquid diet today Repeat LFTs were elevated including T. bili MRCP ordered for the morning, discussed with surgery N.p.o. for midnight As needed pain medications and antiemetics Empiric antibiotics with Zosyn History of ASD repair Denies any cardiac symptoms Troponin and BNP normal DVT PPX: SCD Code status: Full code Discharge Plan: Home Plan to discharge in: 24 Hours - Advance Directives Does patient have a Living Will: No Does patient have a Durable POA for Healthcare: No - Code Status/Comfort Care Code Status Assessed: Yes (Full code) Critical Care: No Time Spent Managing Pts Care (In Minutes): 67 <Antonino Ramos - Last Filed: 07/20/25 15:48> Date of Service: 07/20/25 Patient was seen and examined. Events of the last 24 hours have been noted. Spoke with with ERASMO regarding patient's clinical picture after evaluating and examining the patient independently. I performed a substantial part of the MDM during this patient's care today. I personally made or approved the documented management plan and acknowledge its risk of complications. I agree with the findings and documentation provided in the ERASMO's notes. Patient seen and examined. Patient's bilirubin has increased in the afternoon. Concern for choledocholithiasis. MRCP pending. Continue IV fluids and IV antibiotics. Low risk for any cardiopulmonary complication from laparoscopic cholecystectomy. Will monitor labs prior to proceeding with surgery. Will repeat LFTs in AM. <Jayro Harrington - Last Filed: 07/21/25 07:33>
--- NOTE | 2025-07-20 18:10 | RAD REPORT ---
Procedure: Chest Single View HISTORY: Preop. Abdominal pain. COMPARISON: 2017 FINDINGS: The lungs appear clear of acute infiltrate. No significant pleural effusion noted. The heart is normal size. IMPRESSION: No acute abnormality is displayed.
[2025-07-20] MEDS ORDERED: FENTANYL CITR 100 MCG/2 ML IV PRN (19:24)
[2025-07-21 05:07] LABS: Absolute Lymphocytes (CBC) 1.8 K/uL (0.7-4.9); Hematocrit 41.5 % (39.6-49.0); Hemoglobin 14.1 g/dL (13.6-17.9); MCH 28.0 pg (27.0-35.0); MCHC 33.9 g/dL (32.0-36.0); MCV 82.7 fL (80-100); MPV 8.5 fL (7.6-11.3); Nucleated RBC Absolute Count 0.0 (0-0); Nucleated Red Blood Cells % 0.2 % (0-0); RBC Red Blood Cell Count 5.02 M/uL (4.33-5.43); White Blood Count 5.50 thou/uL (4.3-10.9)
[2025-07-21 05:19] LABS: PT Prothrombin Time 12.4 SECONDS (10-13.0); PTT, Activated Partial Thromb 31.9 SECONDS (27.2-37.4); Protime INR 1.1
[2025-07-21 05:28] LABS: ALT/SGPT 210.0 U/L (16-61); AST/SGOT 150.0 U/L (15-37); Albumin 3.3 g/dL (3.4-5.0); Albumin/Globulin Ratio 1.0 (1.1-1.8); Alkaline Phosphatase 124.0 U/L (45-117); Anion Gap 7.8 mEq/L (5.0-15.0); BUN Blood Urea Nitrogen 6.0 mg/dL (7-18); Globulin 3.2 g/dL (2.3-3.5); Glucose Level 89.0 mg/dL (74-106); Potassium 3.8 mEq/L (3.5-5.1)
--- NOTE | 2025-07-21 08:29 | RAD REPORT ---
EXAMINATION: MR CHOLANGIOGRAM CLINICAL INDICATION: Abdominal pain TECHNIQUE: Magnetic resonance cholangiopancreatogram was performed. 3D MIP reconstruction done. COMPARISON: July 20, 2025 CT FINDINGS: Tiny filling defects are present within the gallbladder. Gallbladder wall does not appear significantly thickened on this exam. Biliary tree normal caliber. A filling defect is not seen. Pancreatic duct unremarkable. IMPRESSION: Multiple tiny filling defects in the gallbladder Biliary tree normal caliber without evidence of a stone
[2025-07-21] MEDS ORDERED: FENTANYL CITR 100 MCG/2 ML ONE ×3 (10:20→11:45)
[2025-07-21] MEDS ORDERED: MIDAZOLAM HCL 2 MG/2 ML INJ ONE (10:20)
[2025-07-21] MEDS ORDERED: ONDANSETRON 4 MG/2 ML VIAL ONE (10:20)
[2025-07-21] MEDS ORDERED: ROCURONIUM 50 MG/5 ML VIAL IV ONE ×2 (10:21→11:19)
[2025-07-21] MEDS ORDERED: LIDOCAINE 2% MPF 5 ML VIAL ONE (10:21)
[2025-07-21] MEDS: SUGAMMADEX SODIUM 200 MG/2 ML VIAL IV ONE (10:31)
[2025-07-21] MEDS: SUCCINYLCHOLINE 20 MG/ML (10 ML) IV ONE (10:32)
[2025-07-21] MEDS: BUPIVACAINE 0.5% PF 10 ML VIAL ONE (11:08)
[2025-07-21] MEDS ORDERED: KETOROLAC 30 MG/ML INJ ONE (11:21)
[2025-07-21] MEDS: Mastisol Adhesive Liq ONE (11:43)
--- NOTE | 2025-07-21 11:46 | P.OP ---
Date of Service: 07/21/25 Preop diagnosis: Acute cholecystitis and cholelithiasis Postop diagnosis: Same Procedure performed: Laparoscopic cholecystectomy Surgeon: Aakash Albert MD Field Ring Assembler: Rayna GOMEZ Estimated blood loss: Minimal Specimen: Gallbladder Findings: As above Anesthesia: General Complications: None Drains: None Fluids and blood products: Nonapplicable Disposition: Recovery room Operative note: Patient brought to the OR and placed in supine position. General anesthesia began. Patient prepped and draped in usual sterile fashion. Marcaine 0.5% titrated locally. 15 blade used to make 1 cm supraumbilical midline incision. Subcu tissue divided and bleeding controlled cautery. Fascia identified and divided. #1 Vicryl stay suture placed. Peritoneal cavity entered with blunt dissection. 12 mm trocar placed into the peritoneal cavity under direct vision. Pneumoperitoneum established. Three 5 mm trocars placed under direct vision. 1 trocar placed in the epigastric region just to the right of midline. 2 trocars placed in the right subcostal region. Laparoscopy revealed acute inflammation and distended gallbladder. Fundus identified and retracted superiorly. Infundibulum identified and retracted inferolaterally. Cystic duct and cystic artery clearly identified with blunt dissection. Clips placed. Both structures divided. Cautery used to remove the gallbladder from the liver bed. Gallbladder retrieved to the umbilicus via Endo Catch bag. Right upper quadrant irrigated. Effluent clear. No evidence of bleeding or bile leakage appreciated. All trocars removed under direct vision. Stay sutures tied to each other to reapproximate the fascial defect. Subcutaneous wound irrigated and bleeding controlled cautery. 3-0 chromic used to approximate subcutaneous tissue and close skin. Sterile dressing applied. Patient awakened and taken to recovery room in good general condition. CC:
[2025-07-21] MEDS ORDERED: ONDANSETRON 4 MG/2 ML VIAL IV PRN (11:54)
[2025-07-21] MEDS ORDERED: HYDROMORPHONE HCL 1 MG/ML INJ IV PRN (11:54)
[2025-07-21] MEDS: HYDROMORPHONE HCL 1 MG/ML INJ ONE (12:14)
[2025-07-21 12:27] VITALS: O2SAT 98
[2025-07-21] MEDS: NA CHLORIDE 0.9% 1,000 ML ONE (12:40)
--- NOTE | 2025-07-21 15:30 | P.PN ---
Date of Service: 07/21/25 Subjective Patient continues to improve with no new complaints. Patient labs are better. Patient scheduled for laparoscopic cholecystectomy today. Will reassess after surgery. Possible discharge postoperatively tonight or in a.m. pending findings. Physical Examination - Vital Signs Reviewed - Physical Exam General: Alert, In no apparent distress, Oriented x3 Neck: Supple, 2+ carotid pulse no bruit, No LAD Respiratory: Clear to auscultation bilaterally, Normal air movement Cardiovascular: Regular rate/rhythm, Normal S1 S2 Gastrointestinal: Normal bowel sounds, Tenderness (Mild epigastric tenderness) Musculoskeletal: No tenderness Integumentary: No rashes Neurological: No focal deficits Assessment and Plan -Assessment/Plan Assessment: Acute cholecystitis History of ASD repair Plan: Acute cholecystitis -Patient's scheduled for laparoscopic cholecystectomy. Clinically doing better. Continue with IV fluids and pain control. Continue with IV antibiotics. History of ASD repair -Low risk for any cardiopulmonary complications; this can be outpatient followed as recommended by her monotype setter. DVT PPX: SCD Code status: Full code Discharge Plan: Home Plan to discharge in: 24 Hours - Advance Directives Does patient have a Living Will: No Does patient have a Durable POA for Healthcare: No - Code Status/Comfort Care Code Status Assessed: Yes (Full code) Critical Care: No Time Spent Managing Pts Care (In Minutes): 30
[2025-07-21] MEDS: HYDROCODONE/APAP 7.5/325 MG TAB PO PRN (16:27)
[2025-07-22 04:41] LABS: Absolute Lymphocytes (CBC) 1.4 K/uL (0.7-4.9); Hematocrit 40.1 % (39.6-49.0); Hemoglobin 14.0 g/dL (13.6-17.9); MCH 28.6 pg (27.0-35.0); MCHC 35.0 g/dL (32.0-36.0); MCV 81.6 fL (80-100); MPV 8.4 fL (7.6-11.3); Nucleated RBC Absolute Count 0.0 (0-0); Nucleated Red Blood Cells % 0.1 % (0-0); RBC Red Blood Cell Count 4.91 M/uL (4.33-5.43); White Blood Count 10.80 thou/uL (4.3-10.9)
[2025-07-22 04:52] LABS: ALT/SGPT 175.0 U/L (16-61); AST/SGOT 89.0 U/L (15-37); Albumin 3.2 g/dL (3.4-5.0); Albumin/Globulin Ratio 0.9 (1.1-1.8); Alkaline Phosphatase 120.0 U/L (45-117); Anion Gap 8.4 mEq/L (5.0-15.0); BUN Blood Urea Nitrogen 7.0 mg/dL (7-18); Bilirubin Indirect, Calculated 0.7 mg/dL (0.2-0.8); Globulin 3.7 g/dL (2.3-3.5); Glucose Level 117.0 mg/dL (74-106); Magnesium 2.0 mg/dL (1.6-2.4); Potassium 4.4 mEq/L (3.5-5.1)
[2025-07-22 09:07] VITALS: BP 162/92; TEMP 98.3
--- NOTE | 2025-07-22 11:15 | PN ---
Date of Progress Note: 07/22/2025 Subjective: The patient is awake, alert, tolerating diet, pain controlled on p.o. pain medication. Objective: Vital Signs: Stable. He is afebrile. Abdomen: Benign. Laboratory Data: Reviewed. His LFTs are improving. Assessment: Status post laparoscopic cholecystectomy. Recommendation: The patient is cleared for discharge. Discharge instructions given. Pain medicine and antibiotics per the Hospitalist Team. Follow up in my office in 1 week. CARLI/DANIAL Voice ID: [id number] Report ID: [id number]
--- NOTE | 2025-07-22 15:37 | P.DS ---
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 He works the overnight shift and developed the abdominal pain around 3 AM, his last meal was around 1 AM, he denies similar episodes in the past. Patient was evaluated in the emergency department his labs were significant for a normal white blood cell count a T. bili of 1.[address] and abdominal ultrasound are concerning for cholecystitis. Patient be admitted for further management. Hospital Course: Assessment: Acute cholecystitis History of ASD repair Patient was admitted to hospital for acute cholecystitis. It was noted that his T. bili and LFTs became elevated and then MRCP was performed, MRCP was negative for any biliary obstruction. Patient underwent laparoscopic cholecystectomy on 07/21 and is doing well postoperatively. Patient stable for discharge and outpatient follow-up with general surgeryDr. Albert in 1 week. May shower in a.m. Remove outer dressing in a.m. Keep Steri-Strips on at all times Resume home meds and diet Activity as tolerated, no heavy lifting for 4-6 Follow-up my office in 1 week, call for appointment Antibiotics and pain medicine for the hospitalist team Vital Signs/Physical Exam: Temp Pulse Resp BP Pulse Ox 98.3 F 82 18 162/92 H 100 07/22/25 08:00 07/22/25 08:00 07/22/25 08:00 07/22/25 08:00 07/22/25 08:00 General: Alert, In no apparent distress, Oriented x3 HEENT: Atraumatic, PERRLA Neck: Supple, JVD not distended Respiratory: Clear to auscultation bilaterally, Normal air movement Cardiovascular: Regular rate/rhythm, Normal S1 S2 Gastrointestinal: Normal bowel sounds, No tenderness Musculoskeletal: No tenderness Integumentary: No rashes Neurological: Normal speech, Normal affect Laboratory Data at Discharge: WBC 10.80 thou/uL (4.3-10.9) 07/22/25 04:13 Hgb 14.0 g/dL (13.6-17.9) 07/22/25 04:13 Hct 40.1 % (39.6-49.0) 07/22/25 04:13 Plt Count 278 thou/uL (152-406) 07/22/25 04:13 PT 12.4 SECONDS (10-13.0) 07/21/25 04:47 INR 1.10 07/21/25 04:47 APTT 31.9 SECONDS (27.2-37.4) 07/21/25 04:47 Sodium 138 mEq/L (136-145) 07/22/25 04:13 Potassium 4.4 mEq/L (3.5-5.1) D 07/22/25 04:13 BUN 7 mg/dL (7-18) 07/22/25 04:13 Creatinine 0.95 mg/dL (0.70-1.30) 07/22/25 04:13 Glucose 117 mg/dL (74-106) H 07/22/25 04:13 Phosphorus 3.5 mg/dL (2.5-4.9) 07/22/25 04:13 Magnesium 2.0 mg/dL (1.6-2.4) 07/22/25 04:13 Total Bilirubin 1.2 mg/dL (0.2-1.0) H 07/22/25 04:13 AST 89 U/L (15-37) H 07/22/25 04:13 ALT 175 U/L (16-61) H 07/22/25 04:13 Alkaline Phosphatase 120 U/L (45-117) H 07/22/25 04:13 Lipase 42 U/L (13-75) 07/20/25 07:03 Home Medications: Omeprazole [Prilosec] 40 mg PO AC 07/20/25 Semaglutide 1 mg SQ ONCE 07/20/25 Amox/Clavulanate [Augmentin 875-125 Tab] 875 mg PO BID 5 Days #10 tab 07/22/25 Hydrocodone 5/APAP 325 [[place] 5/325*] 1 tab PO Q8H PRN #15 tab 07/22/25 New Medications: Amox/Clavulanate [Augmentin 875-125 Tab] 875 mg PO BID 5 Days #10 tab Hydrocodone 5/APAP 325 [[place] 5/325*] 1 tab PO Q8H PRN #15 tab PRN Reason: Pain Physician Discharge Instructions: Patient was admitted to hospital for acute cholecystitis. It was noted that his T. bili and LFTs became elevated and then MRCP was performed, MRCP was negative for any biliary obstruction. Patient underwent laparoscopic cholecystectomy on 07/21 and is doing well postoperatively. Patient stable for discharge and outpatient follow-up with general surgeryDrProsper Albert in 1 week. May shower in a.m. Remove outer dressing in a.m. Keep Steri-Strips on at all times Resume home meds and diet Activity as tolerated, no heavy lifting for 4-6 Follow-up my office in 1 week, call for appointment Antibiotics and pain medicine for the hospitalist team Diet: Regular Activity: Ad christin Followup: OOT,OOT [Primary Care Provider] - Aakash Albert MD [ACTIVE - CAN ADMIT] - 1 Week Time spent managing pt's care (in minutes): 37
== END 2025-07-22 10:23 | disposition home or self-care (01) | DRG 419 ==
LOC: ER 06:54 → ERHOLD 08:59 → 2ND 10:09 → OBSVTOIN 07-22 09:02
PROVIDERS: ADMIT Hospitalist; ATTEND Hospitalist
PROC: 0FT44ZZ Resection of Gallbladder, Percutaneous Endoscopic Approach (ICD-10-PCS; principal; 2025-07-21 09:30)
DX: K80.00 Calculus of gallbladder with acute cholecystitis without obstruction (principal)
CPT/HCPCS: 36415; 71045; 74177; 74181; 76705; 80048; 80053; 80076; 83690; 83735; 83880; 84100; 84484; 85025; 85610; 85730; 88304; 94010; 96361; 96365; 96368; 96375; 99285; G0378; J0330; J0696; J1100; J1171; J2003; J2250; J2405; J2543; J2704; J3010; J7030; Q9967